=== PATIENT | male | born 1960 | race Caucasian/White ===

== ENCOUNTER 2018-10-13 06:09 | Inpatient (IN) | payer OTHER ==
[2018-10-05 14:56] VITALS: BMI 31.3
[2018-10-13] MEDS ORDERED: GABAPENTIN 300 MG CAPSULE (FP) PO ONE (06:29)
[2018-10-13] MEDS ORDERED: TRANEXAMIC ACID 1000 MG/10 ML VIAL IVPUSH ONE (06:29)
[2018-10-13] MEDS ORDERED: CELECOXIB 200 MG CAPSULE PO ONE (06:29)
[2018-10-13] MEDS ORDERED: oxyCODONE HCL 10 MG SUSTAINED ACTING TABLET PO ONE (06:29)
[2018-10-13] MEDS ORDERED: CEFAZOLIN 2 GM/D5W 2 GM/50 ML ML IVPB ONE (06:29)
[2018-10-13] MEDS ORDERED: GABAPENTIN 300 MG CAPSULE (FP) ONE (06:39)
[2018-10-13] MEDS ORDERED: oxyCODONE HCL 10 MG SUSTAINED ACTING TABLET ONE (06:39)
[2018-10-13] MEDS ORDERED: CELECOXIB 200 MG CAPSULE ONE (06:40)
[2018-10-13] MEDS ORDERED: SUCCINYLCHOLINE CHLORIDE 200 MG/10 ML VIAL ONE (07:13)
[2018-10-13] MEDS ORDERED: PROPOFOL 20 ML ONE ×2 (07:13→09:08)
[2018-10-13] MEDS ORDERED: ONDANSETRON 4 MG/2 ML VIAL ONE (07:13)
[2018-10-13] MEDS ORDERED: SODIUM CHLORIDE 0.9% P/F 10 ML VIAL IJ ONE (07:13)
[2018-10-13] MEDS ORDERED: DEXAMETHASONE SOD PHOSPHATE 4 MG/1 ML VIAL ONE (07:13)
[2018-10-13] MEDS ORDERED: ceFAZolin SODIUM 1 GM VIAL ONE ×2 (07:13→07:21)
[2018-10-13] MEDS ORDERED: MIDAZOLAM HCL 2 MG/2 ML SINGLE DOSE VIAL ONE ×2 (07:14)
[2018-10-13] MEDS ORDERED: BUPIVACAINE HCL/PF 0.5% (5MG/ML) 10 ML VIAL ONE (07:15)
[2018-10-13] MEDS ORDERED: VANCOMYCIN 1,000 MG VIAL (RESTRICTED TO ID ONLY) ONE (07:21)
[2018-10-13] MEDS ORDERED: DEXAMETHASONE SOD PHOSPHATE/PF 10 MG/ML SDV ONE (07:28)
[2018-10-13] MEDS ORDERED: MAG HYDROX/AL HYDROX/SIMETH 30 ML UNIT-DOSE CUP PO PRN (07:33)
[2018-10-13] MEDS ORDERED: MAGNESIUM HYDROX 2400MG/30ML ORAL SUSPENSION 30 ML CUP PO PRN (07:33)
[2018-10-13] MEDS ORDERED: ONDANSETRON 4 MG/2 ML VIAL IVPUSH PRN (07:33)
--- NOTE | 2018-10-13 07:35 | HP ---
[facility]ellite [facility] - Chief Complaint Chief Complaint: left hip pain - Past Medical History Allergies/Adverse Reactions: Allergies Allergy/AdvReac Type Severity Reaction Status Date / Time No Known Allergies Allergy Verified 10/05/18 14:48 - Current Medications Current Medications: Home Medications Medication Instructions Recorded Atorvastatin Ca [Lipitor] 10 mg PO HS 10/05/18 Carvedilol 6.25 mg PO BID 10/05/18 Dapagliflozin Propanediol [Farxiga] 10 mg PO DAILY 10/05/18 Ferrous Sulfate [Iron] 1 tab PO HS 10/05/18 Glimepiride 10 mg PO BID 10/05/18 Liraglutide [Victoza -] 1.8 mg SQ DAILY@0700 10/05/18 Losartan Potassium 25 mg PO DAILY 10/05/18 Metformin HCl [Glucophage] 1,000 mg PO BID 10/05/18 Satellite Physical Exam - Physical Examination Vital Signs: Vital Signs Period Temp Pulse Resp BP Sys/Walker Pulse Ox Last 24 Hr 97.9 F 82 18 133/77 General Appearance: Well Nourished, Well Developed, Alert & Oriented x3 ENT: Clear Lung: Normal air movement Heart: Regular rate & rhythm Extremities: Other (left hip- + ttp, decr rom, nvi xrays show grade 4 hip djd) Neurological: Intact, Alert, Oriented Satellite Impression/Plan - Impression/Plan Impression: left hip djd Operative Procedure: left teresa thr Date to be Performed: 10/13/18
[2018-10-13] MEDS ORDERED: LACTATED RINGERS SOLUTION 1,000 ML IV SCH (07:45)
[2018-10-13] MEDS ORDERED: TRANEXAMIC ACID 1000 MG/10 ML VIAL ONE (08:17)
[2018-10-13] MEDS ORDERED: PHENYLEPHRINE HCL 10 MG/1 ML SINGLE DOSE VIAL ONE (08:40)
[2018-10-13] MEDS ORDERED: VANCOMYCIN 1,000 MG VIAL (RESTRICTED TO ID ONLY) IVPB ONE (09:15)
--- NOTE | 2018-10-13 09:42 | OP ---
Operative Note - Note: Operative Date: 10/13/18 (fara) Pre-Operative Diagnosis: left hip djd Operation: left teresa thr Post-Operative Diagnosis: Same as Pre-op Surgeon: Douglas Mares Kennel Manager Dog Track: Dariusz Jc Anesthesiologist/RADIATOR CORE TESTER: Juan Pablo Berger Anesthesia: Spinal, Local Specimens Removed: femoral head Estimated Blood Loss (mls): 100 Operative Report Dictated: Yes
[2018-10-13] MEDS ORDERED: PATIENT'S OWN MEDICATION (NON-FORMULARY) (Dapagliflozin Propanediol [Farxiga] 10 MG) PO SCH (10:00)
[2018-10-13] MEDS ORDERED: PATIENT'S OWN MEDICATION (NON-FORMULARY) (Metformin Hcl [Glucophage] 1,000 MG) PO SCH (10:00)
[2018-10-13] MEDS ORDERED: CARVEDILOL 6.25 MG TABLET (FP) PO SCH (10:00)
[2018-10-13] MEDS ORDERED: GLIMEPIRIDE 1 MG TABLET (FP) PO SCH (10:00)
[2018-10-13] MEDS ORDERED: oxyCODONE HCL 5 MG TABLET PO PRN (10:43)
[2018-10-13] MEDS ORDERED: ACETAMINOPHEN 325 MG TABLET (FP) ONE (10:57)
[2018-10-13] MEDS: ACETAMINOPHEN 325 MG TABLET (FP) PO SCH ×3 (10:58→23:52)
[2018-10-13] MEDS: SENNOSIDES/DOCUSATE COMBO (SENNA PLUS) TABLET (UD) PO SCH ×2 (13:13→21:46)
[2018-10-13] MEDS: MULTIVITAMINS (DAILY MVI) TABLET (FP) PO SCH (13:14)
[2018-10-13] MEDS: oxyCODONE HCL 5 MG TABLET PO PRN ×3 (13:14→20:02)
[2018-10-13] MEDS: PANTOPRAZOLE 40 MG TABLET (FP) PO SCH (13:14)
[2018-10-13] MEDS: CEFAZOLIN 2 GM/D5W 2 GM/50 ML ML IVPB SCH ×2 (16:20→23:53)
[2018-10-13] MEDS: metFORMIN HCL 500 MG TABLET (FP) PO SCH (16:21)
[2018-10-13] MEDS: INSULIN SLIDING SCALE (NOVOLOG) 1 VIAL SQ SCH ×2 (16:43→22:27)
[2018-10-13] MEDS ORDERED: INSULIN (NOVOLOG) ASPART 100 UNITS/ML 10ML VIAL ONE (16:45)
--- NOTE | 2018-10-13 19:43 | SPEC ---
DATE OF OPERATION: 10/13/2018 PREOPERATIVE DIAGNOSIS: Degenerative joint disease left hip. POSTOPERATIVE DIAGNOSIS: Degenerative joint disease left hip. PROCEDURE PERFORMED: Left total hip replacement with robotic-assisted navigation (MAKOplasty). SURGICAL ATTENDING: Douglas Mares MD ANESTHESIA: Regional and spinal. CLOSURE: A Chelsie total hip system with a number 5 Accolade II Press-Fit femoral stem, a 50-mm Trident II press-fit acetabulum, and a standard MDM femoral head. Number 1 Vicryl for fascia, 0 and 2-0 subcutaneous, 3-0 V-Loc for skin, 4-0 undyed Vicryl for pin sites. ESTIMATED BLOOD LOSS: Less than 100 mL. COMPLICATIONS: None. CONDITION: To the recovery room in stable condition. DESCRIPTION OF PROCEDURE: The patient was taken to the operating room on October 13, 2018. General and regional anesthesia was administered by the anesthesiologist. IV Kefzol and TXA were administered prophylactically prior to the case. The patient was placed in the lateral decubitus position will all prominences well-padded. The left hip area was prepped and draped in the usual sterile fashion. Using 3 small stab incisions over the iliac crest, 3 threaded pins were drilled in power fashion through the 2 tables of the crest. These pins were fastened and the navigation array for the Angelito navigation system. Next, a 12 to 15-cm curved longitudinal incision over the posterolateral aspect of the greater trochanter was incised. Hemostasis was achieved with Bovie cautery. Sharp dissection was carried down to level of the fascia. The fascia was opened the entire length of the incision, spreading the fibers of the gluteus mikayla in the direction of origin. A Charnley retractor was placed in this layer. Care was taken not to impale the sciatic nerve. The short external rotators were detached off the insertion of the greater trochanter and peeled off the capsule. A posterior capsulotomy was then performed. A check point was malleted into the greater trochanter and a point on the inferior pole of the patella was obtained as well. These 2 points were used to assess the preoperative offset and limb lengths of the hip. The hip was then dislocated. The femoral neck was then osteotomized down to the appropriate level as directed by the navigation device. Anterior and posterior retractors were placed, exposing the acetabulum. A circumferential labral excision was performed. A check point was malleted into the acetabulum as well. Multiple sites inside the acetabulum and around the rim were utilized to register the acetabulum with the navigation device. An excellent registration of less than 0.5 mm was obtained. The hip was then reamed with the appropriate reamer down to the appropriate depth, with the appropriate orientation and version as assessed on our preoperative plan for this patient. The reamer was removed and the acetabulum was inspected to have good bleeding surfaces throughout. The real acetabular cup was then malleted down into place, with the holes in the appropriate position, until an excellent fixation was obtained. No screws were necessary. The navigation device ensured appropriate orientation and version, with the depth as predetermined. The appropriate liner was then clipped into place. Attention was directed to the femur. The proximal femur was prepared by use a box chisel, a canal finder and serial broaches until the broach achieved excellent rigidity in the proximal femur with the appropriate version being applied. A calcar planer was used to smooth off the calcar flush with the trial components. A trial reduction with the appropriate head was done, and the hip was reduced. The hip was taken through a range of motion from full extension with external rotation to marked flexion, and was stable at 90 degrees of flexion. It was stable to marked abduction and internal rotation, with a positive hang test and negative telescoping. Limb lengths were ascertained visually as well as with the navigation device to be within the targeted range for this patient. The trial component was removed. The real component was then malleted into place. The head was cold welded to the trunnion, and the hip was reduced. Range of motion, stability and limb lengths were as described in the trial component. Then the hip was pulse antibiotic irrigated. Vancomycin powder was placed in the hip joint. The capsule was closed. The fascia was then closed as well using number 1 Vicryl interrupted suture, 0 and 2-0 subcutaneous, and 3-0 V-Loc for the skin. 4-0 undyed Vicryl was used to close the pin sites after the pins were removed. All check points were also removed. Sterile Aquacel dressing was applied. The patient was awakened from anesthesia and transferred into the supine position. Bilateral SCDs and an abduction pillow were placed. X-rays revealed excellent position of the components. The patient was transferred to the recovery room in stable condition, with no complications. Estimated blood loss was less than 100 mL. Ryan [id number]
[2018-10-13] MEDS: CARVEDILOL 6.25 MG TABLET (FP) PO SCH (21:45)
[2018-10-13] MEDS: FERROUS SO4 325 MG TABLET (FP) PO SCH (21:45)
[2018-10-13] MEDS: oxyCODONE HCL 10 MG SUSTAINED ACTING TABLET PO SCH (21:46)
[2018-10-13] MEDS: ATORVASTATIN CA 10 MG TABLET (FP) PO SCH (21:46)
[2018-10-13] MEDS ORDERED: FERROUS SULFATE PO SCH (22:00)
[2018-10-14] MEDS: INSULIN SLIDING SCALE (NOVOLOG) 1 VIAL SQ SCH ×4 (06:51→22:52)
[2018-10-14] MEDS: oxyCODONE HCL 5 MG TABLET PO PRN ×4 (06:52→22:11)
[2018-10-14] MEDS: ACETAMINOPHEN 325 MG TABLET (FP) PO SCH ×3 (06:52→17:50)
[2018-10-14] MEDS: metFORMIN HCL 500 MG TABLET (FP) PO SCH ×2 (06:53→17:51)
[2018-10-14] MEDS ORDERED: LIRAGLUTIDE 0.6 MG/0.1 ML PEN.INJCTR SQ SCH (07:00)
[2018-10-14 07:07] LABS: HEMATOCRIT 36.7 % (35.4-49); MCH 30.9 pg (25.7-33.7); MCHC 32.8 g/dl (32.0-35.9); MEAN CELL VOLUME 94.4 fl (80-96); MEAN PLT VOLUME 9.2 fl (7.5-11.1); PLATELET COUNT 219 K/MM3 (134-434); RBC 3.89 M/mm3 (4.00-5.60); RDW 13.1 % (11.9-15.9); WHITE BLOOD COUNT 9.5 K/mm3 (4.0-10.8)
[2018-10-14] MEDS ORDERED: INSULIN (NOVOLOG) ASPART 100 UNITS/ML 10ML VIAL ONE (07:11)
--- NOTE | 2018-10-14 08:59 | PN ---
Progress Note (short form) - Note Progress Note: Ortho Pt seen and examined s/p left teresa thr Pod #1 Selected Entries 10/14/18 03:00 Temperature 97.8 F Pulse Rate 80 Respiratory 18 Rate Blood Pressure 115/53 L Laboratory Tests 10/14/18 07:01 WBC 9.5 Hgb 12.0 Hct 36.7 Plt Count 219 dressing c/d/i, calf soft, nt nvi a/p PT hip precautions dvt ppx pain control d/c home tomorrow if stable
[2018-10-14] MEDS: SENNOSIDES/DOCUSATE COMBO (SENNA PLUS) TABLET (UD) PO SCH ×2 (09:32→22:06)
[2018-10-14] MEDS: MULTIVITAMINS (DAILY MVI) TABLET (FP) PO SCH (09:33)
[2018-10-14] MEDS: ASPIRIN 325 MG TABLET PO SCH (09:33)
[2018-10-14] MEDS: LOSARTAN POTASSIUM 25 MG TABLET PO SCH (09:33)
[2018-10-14] MEDS: PANTOPRAZOLE 40 MG TABLET (FP) PO SCH (09:33)
[2018-10-14] MEDS: CARVEDILOL 6.25 MG TABLET (FP) PO SCH ×2 (09:34→22:05)
[2018-10-14] MEDS: oxyCODONE HCL 10 MG SUSTAINED ACTING TABLET PO SCH ×2 (09:34→22:06)
--- NOTE | 2018-10-14 12:12 | PN ---
Progress Note, Physician Chief Complaint: s/p left hip replacement under spinal anesthesia post op day one History of Present Illness: paravertebral block for post op pain control - Current Medication List Current Medications: Active Medications Acetaminophen (Tylenol -) 650 mg PO Q6H [facility] Stop: 10/16/18 11:59 Last Admin: 10/14/18 06:52 Dose: 650 mg Al Hydroxide/Mg Hydroxide (Mylanta Oral Suspension -) 30 ml PO Q4H PRN PRN Reason: DYSPEPSIA Aspirin (Asa -) 325 mg PO DAILY@0800 [facility] Last Admin: 10/14/18 09:33 Dose: 325 mg Atorvastatin Calcium (Lipitor -) 10 mg PO [facility] Last Admin: 10/13/18 21:46 Dose: 10 mg Carvedilol (Coreg -) 6.25 mg PO BID [facility] Last Admin: 10/14/18 09:34 Dose: 6.25 mg Ferrous Sulfate (Feosol -) 325 mg PO [facility] Last Admin: 10/13/18 21:45 Dose: 325 mg Glimepiride (Amaryl -) 10 mg PO BID [facility] Insulin Aspart (Novolog Vial Sliding Scale -) 1 vial SQ [facility]; Protocol Last Admin: 10/14/18 11:55 Dose: 8 units Liraglutide (Victoza -) 1.8 mg SQ DAILY@0700 [facility] Losartan Potassium (Cozaar -) 25 mg PO DAILY [facility] Last Admin: 10/14/18 09:33 Dose: 25 mg Magnesium Hydroxide (Milk Of Magnesia -) 30 ml PO PRN PRN PRN Reason: CONSTIPATION Metformin HCl (Glucophage -) 1,000 mg PO BIDI [facility] Last Admin: 10/14/18 06:53 Dose: 1,000 mg Multivitamins/Minerals/Vitamin C (Tab-A-Vit -) 1 tab PO DAILY [facility] Last Admin: 10/14/18 09:33 Dose: 1 tab Non-Formulary Medication (Dapagliflozin Propanediol [Farxiga]) 10 mg PO DAILY [facility] Ondansetron HCl (Zofran Injection) 4 mg IVPUSH Q6H PRN PRN Reason: NAUSEA Oxycodone HCl (Roxicodone -) 5 mg PO Q3H PRN PRN Reason: PAIN LEVEL 1-5 Oxycodone HCl (Roxicodone -) 10 mg PO Q3H PRN PRN Reason: PAIN LEVEL 6-10 Last Admin: 10/14/18 06:52 Dose: 10 mg Oxycodone HCl (Oxycontin -) 10 mg PO BID [facility] Stop: 10/16/18 10:43 Last Admin: 10/14/18 09:34 Dose: 10 mg Pantoprazole Sodium (Protonix -) 40 mg PO DAILY [facility] Last Admin: 10/14/18 09:33 Dose: 40 mg Senna/Docusate Sodium (Pericolace -) 2 tablet PO BID [facility] Last Admin: 10/14/18 09:32 Dose: 2 tablet - Objective Vital Signs: Vital Signs Temperature 97.8 F 10/14/18 03:00 Pulse Rate 80 10/14/18 03:00 Respiratory Rate 18 10/14/18 03:00 Blood Pressure 115/53 L 10/14/18 03:00 O2 Sat by Pulse Oximetry (%) 97 10/14/18 06:34 Constitutional: Yes: Well Nourished Cardiovascular: Yes: WNL Respiratory: Yes: WNL Gastrointestinal: Yes: WNL Labs: CBC, BMP 10/14/18 07:01 Assessment/Plan Pain controlled by oral analgesics, no complications from anesthesia. dept of anesthesia will sign off care at this time
[2018-10-14] MEDS: glyBURIDE 5 MG TABLET (UD) PO SCH (17:52)
[2018-10-14] MEDS ORDERED: REFRIGERATED ANITBIOTICS ONE (18:51)
[2018-10-14] MEDS: ATORVASTATIN CA 10 MG TABLET (FP) PO SCH (22:05)
[2018-10-14] MEDS: FERROUS SO4 325 MG TABLET (FP) PO SCH (22:05)
[2018-10-15] MEDS: oxyCODONE HCL 5 MG TABLET PO PRN ×3 (01:58→10:04)
[2018-10-15] MEDS: ACETAMINOPHEN 325 MG TABLET (FP) PO SCH ×2 (01:58→06:55)
[2018-10-15] MEDS: INSULIN SLIDING SCALE (NOVOLOG) 1 VIAL SQ SCH (06:55)
[2018-10-15] MEDS: glyBURIDE 5 MG TABLET (UD) PO SCH (06:57)
[2018-10-15] MEDS: metFORMIN HCL 500 MG TABLET (FP) PO SCH (06:57)
[2018-10-15 07:02] VITALS: BP 134/63; PULSE 88; TEMP 98.1
[2018-10-15] MEDS: ASPIRIN 325 MG TABLET PO SCH (08:02)
[2018-10-15 08:08] LABS: HEMATOCRIT 35.9 % (35.4-49); HEMOGLOBIN 11.6 GM/dl (11.7-16.9); MCH 30.8 pg (25.7-33.7); MCHC 32.4 g/dl (32.0-35.9); MEAN CELL VOLUME 94.8 fl (80-96); MEAN PLT VOLUME 10.3 fl (7.5-11.1); PLATELET COUNT 139 K/MM3 (134-434); RBC 3.78 M/mm3 (4.00-5.60); RDW 13.5 % (11.9-15.9); WHITE BLOOD COUNT 11.1 K/mm3 (4.0-10.8)
--- NOTE | 2018-10-15 08:41 | PN ---
Progress Note (short form) - Note Progress Note: Ortho Pt seen and examined s/p left teresa thr Pod #2 Selected Entries 10/15/18 07:00 Temperature 98.1 F Pulse Rate 88 Respiratory 19 Rate Blood Pressure 134/63 Laboratory Tests 10/15/18 07:20 WBC 11.1 H RBC 3.78 L Hgb 11.6 L Plt Count 139 D dressing c/d/i, calf soft, nt nvi a/p PT hip precautions dvt ppx pain control d/c home today f/u in 1 week
--- NOTE | 2018-10-15 08:42 | DS ---
Physical Examination Vital Signs: Vital Signs Temperature 98.1 F 10/15/18 07:00 Pulse Rate 88 10/15/18 07:00 Respiratory Rate 19 10/15/18 07:00 Blood Pressure 134/63 10/15/18 07:00 O2 Sat by Pulse Oximetry (%) 96 10/14/18 22:47 Labs: CBC, BMP 10/15/18 07:20 Discharge Summary Reason For Visit: OSTEOARTHRITIS Procedures: Principal: left thr Hospital Course: admitted for elective left teresa thr, uneventful post-op, stable for d/c Condition: Good - Instructions Diet, Activity, Other Instructions: Post-op Instructions-Total Hip Replacement Call the office for a follow-up appointment in 1 week - [phone] Aspirin 325mg daily for 6 weeks. Pain medication was sent into your pharmacy. Apply Graduated Compression Stockings (TEDs) to both lower extremities- remove daily for hygiene ONLY Apply Sequential Compression Device (SCDs) to both Lower extremities remove for PT and hygiene ONLY Apply cold packs to affected area for 15 minutes every 2 hours. Physical Therapist will come to your home for the first 5 days. You will be set up with outpatient PT at your first post-operative visit. Patient may ambulate as tolerated-encourage self care (at least every 2-3 hours while awake) with walker or cane Maintain Aquacel (waterproof) dressing to operative wound (will be removed by surgeon at first office visit) Shower with Aquacel dressing in place-if Aquacel integrity compromised, remove and apply dry sterile dressing and notify Orthopedist. DO NOT SHOWER unless Orthopedists approves without Aquacel dressing CONTACT THE OFFICE FOR ANY CHANGE IN YOUR CONDITION (for example-fever greater than 102 degrees, excessive bleeding from operative site, purulent drainage, severe swelling or pain) GO TO THE EMERGENCY ROOM IF THERE IS A MEDICAL EMERGENCY Hip Precautions: * Keep a rolled towel under affected heel while in bed or chair (to keep knee in extension) * Dependent upon approach: * Posterior - do not cross legs; do not sit on low chairs or toilets. * If you have any questions, please do not hesitate to call the office - [phone]. Referrals: Douglas Mares MD [Staff Physician] - Disposition: [facility]NS/HOME HEALTH CARE - Home Medications Comprehensive Discharge Medication List: Ambulatory Orders Atorvastatin Ca [Lipitor] 10 mg PO HS 10/05/18 Carvedilol 6.25 mg PO BID 10/05/18 Dapagliflozin Propanediol [Farxiga] 10 mg PO DAILY 10/05/18 Ferrous Sulfate [Iron] 1 tab PO HS 10/05/18 Liraglutide [Victoza -] 1.8 mg SQ DAILY@0700 10/05/18 Losartan Potassium 25 mg PO DAILY 10/05/18 Metformin HCl [Glucophage] 1,000 mg PO BID 10/05/18 Aspirin [ASA -] 325 mg PO DAILY@0800 tablet 10/13/18 Oxycodone HCl/Acetaminophen [Percocet 5-325 mg Tablet -] 1 - 2 tab PO Q6H #50 tab MDD 8 10/13/18 Glyburide 10 mg PO BID 10/14/18
[2018-10-15] MEDS: CARVEDILOL 6.25 MG TABLET (FP) PO SCH (10:03)
[2018-10-15] MEDS: MULTIVITAMINS (DAILY MVI) TABLET (FP) PO SCH (10:03)
[2018-10-15] MEDS: LOSARTAN POTASSIUM 25 MG TABLET PO SCH (10:03)
[2018-10-15] MEDS: PANTOPRAZOLE 40 MG TABLET (FP) PO SCH (10:03)
[2018-10-15] MEDS: SENNOSIDES/DOCUSATE COMBO (SENNA PLUS) TABLET (UD) PO SCH (10:03)
[2018-10-15] MEDS: oxyCODONE HCL 10 MG SUSTAINED ACTING TABLET PO SCH (10:04)
--- NOTE | 2018-10-15 14:05 | PATH ---
Surgical Pathology Report Patient Name: BRAXTON PERDOMO Med. Rec. #: [id number] /Age/Gender: 1960 (Age: 58) / M Account: [id number] Location: [facility] MED-SURG Taken: 10/13/2018 Received: 10/13/2018 Reported: 10/15/2018 Physicians: Douglas Mares M.D. Specimen(s) Received LEFT FEMORAL HEAD Clinical History Osteoarthritis left hip Final Diagnosis BONE, FEMORAL HEAD, LEFT, TOTAL HIP REPLACEMENT MAKOPASTY: BONE WITH DEGENERATIVE JOINT DISEASE. Electronically Signed Pati Melgoza M.D. Gross Description Received in formalin, labeled "left femoral head," is a 4.5 x 4.5 x 3.4 cm. femoral head with a 0.9 cm in length portion of femoral neck attached. The margin of resection is smooth. There is a 2.8 cm in greatest dimension area of eburnation present. The remaining articular surface is yanez-yellow and diffusely granular. The underlying trabecular bone is yellow and hard. A advertising sales representative section is submitted in one cassette, following decalcification. /10/14/2018 [facility]10/14/2018
== END 2018-10-15 11:34 | disposition home health service (06) | DRG 470 ==
LOC: FM/S 06:09
PROVIDERS: ADMIT Orthopaedic Surgery; ATTEND Orthopaedic Surgery
PROC: 8E0Y0CZ Robotic Assisted Procedure of Lower Extremity, Open Approach (ICD-10-PCS; 2018-10-13)
PROC: 0SRB0JA Replacement of Left Hip Joint with Synthetic Substitute, Uncemented, Open Approach (ICD-10-PCS; principal; 2018-10-13 08:27)
DX: M16.12 Unilateral primary osteoarthritis, left hip (principal)
CPT/HCPCS: 36415; 73502-TC-LT-FY; 82962; 85027; 88305-TC; 88311-TC; 94760; 97116-GP; 97163-GP

== ENCOUNTER 2023-05-15 04:33 | Day surgery (SDC) | payer OTHER ==
[2023-05-14 11:06] VITALS: BMI 32.5
[2023-05-15] MEDS ORDERED: LIDOCAINE HCL 1%, 10 MG/ML (20ML VIAL) ONE (07:10)
[2023-05-15] MEDS ORDERED: LIDOCAINE HCL 1%, 10 MG/ML (20ML VIAL) INF ONE (09:10)
[2023-05-15 10:00] VITALS: BP 129/59; PULSE 68; RESP 17; TEMP 97.4
== END 2023-05-15 10:30 | disposition home or self-care (01) ==
LOC: JASU-SURG 04:33
PROVIDERS: ATTEND Orthopaedic Surgery
PROC: 015D3ZZ Destruction of Femoral Nerve, Percutaneous Approach (ICD-10-PCS; principal; 2023-05-15 09:00)
DX: M17.11 Unilateral primary osteoarthritis, right knee (principal); M25.561 Pain in right knee